=== PATIENT | male | born 1970 | race Caucasian/White ===

== ENCOUNTER 2017-06-02 19:06 | Emergency (ER) | payer BC ==
[2017-06-02] MEDS ORDERED: HYDROCODONE/APAP 10/325 TABLET PO ONE (19:15)
--- NOTE | 2017-06-02 19:19 | Emergency Department Record ---
History of Present Illness - General Stated Complaint: INJURY TO LEFT HAND Source: Patient Mode of Arrival: Ambulatory Limitations: No limitations - History of Present Illness Initial Comments: 46 yo male presents to ED for evaluation following injury to the left hand. Patient reports that he struck a fixed object with the left hand while angry, resulting in instant pain and deformity. Patient denies taking anything prior to arrival for pain, denies other injury, and denies health problems at his baseline. Complaint: Injury to:: Left Onset/Timin -: Minutes(s) Other Extremity Injury: Hand: Left Other Injuries: None Handedness: Left Improves With: None Worsens With: Movement of extremity Context: Direct blow Associated Symptoms: Denies other symptoms - Related Data Previous Rx's Medication Instructions Recorded Hydrocodone/Acetaminophen [[place] 1 each PO Q6H PRN #10 tablet 06/02/17 5-325 Tablet] Allergies Allergy/AdvReac Type Severity Reaction Status Date / Time No Known Drug Allergies Allergy Verified 06/02/17 19:15 Review of Systems Constitutional: Denies: Chills, Fever, Malaise, Night sweats Eyes: Denies: Eye discharge, Eye pain ENT: Denies: Congestion, Ear pain, Epistaxis Respiratory: Denies: Cough, Dyspnea Cardiovascular: Denies: Chest pain, Dyspnea on exertion Endocrine: Denies: Fatigue, Heat or cold intolerance Gastrointestinal: Denies: Abdominal pain, Nausea, Vomiting Genitourinary: Denies: Incontinence, Retention Musculoskeletal: Denies: Arthralgia, Back pain Skin: Denies: Bruising, Change in color Neurological: Denies: Abnormal gait, Confusion, Headache Psychiatric: Denies: Anxiety Hematological/Lymphatic: Denies: Anemia, Blood Clots Physical Exam - General General Appearance: Alert, Oriented x3, Cooperative, Moderate distress Limitations: No limitations - Head Head exam: Atraumatic, Normocephalic, Normal inspection Head exam detail: negative: Abrasion, Contusion, Orozco's sign, General tenderness, Hematoma, Laceration - Eye Eye exam: Normal appearance. negative: Conjunctival injection, Periorbital swelling, Periorbital tenderness, Scleral icterus - ENT Ear exam: negative: Auricular hematoma, Auricular trauma Nasal Exam: negative: Active bleeding, Discharge, Dried blood Mouth exam: negative: Drooling, Laceration, Tongue elevation - Neck Neck exam: Normal inspection. negative: Meningismus, Tenderness - Respiratory Respiratory exam: Normal lung sounds bilaterally. negative: Respiratory distress, Rhonchi, Stridor, Wheezes - Cardiovascular Cardiovascular Exam: Regular rate, Normal rhythm, Normal heart sounds Peripheral Pulses: 3+: Radial (L) - GI/Abdominal GI/Abdominal exam: Soft. negative: Rebound, Rigid, Tenderness - Rectal Rectal exam: Deferred - exam: Deferred - Extremities Extremities exam: Tenderness, Other (STS and deformity present over the dorsum of the left hand c/w probable metacarpal fracture). negative: Calf tenderness, Pedal edema - Back Back exam: Denies: CVA tenderness (R), CVA tenderness (L) - Neurological Neurological exam: Alert, Normal gait, Oriented X3 - Psychiatric Psychiatric exam: Normal affect, Normal mood - Skin Skin exam: negative: Abrasion Type of lesion: negative: abrasion Course - Reevaluation(s) Reevaluation #1: 06/02/17 20:53 Left Hand: Fracture base of the 4th Metacarpal Patient was updated on his radiology result, he does not want work restrictions but is willing to allow splinting. Will place in ulnar gutter splint and refer to Dr. Payne next week. Patient was given referral for orthopedic evaluation and follow-up next week. Disposition Disposition: Discharge Clinical Impression: Hand fracture, left Qualifiers: Encounter type: initial encounter Fracture type: closed Qualified Code(s): S62.92XA - Unspecified fracture of left wrist and hand, initial encounter for closed fracture Disposition: Home, Self-Care Condition: (2) Stable Instructions: Hand Fracture (ED) Additional Instructions: Return to ED if your symptoms worsen or if you have any concerns. Follow-up with Dr. Payne as directed next week for further evaluation of your hand fracture. [place] as directed. Prescriptions: Hydrocodone/Acetaminophen [[place] 5-325 Tablet] 1 each PO Q6H PRN #10 tablet PRN Reason: Pain - Moderate (5-7) Referrals: KOBE PAYNE M.D. [MEDICAL DOCTOR] - Forms: Patient Portal Access Time of Disposition: 20:56 Quality - Quality Measures Quality Measures: N/A - Blood Pressure Screening Does Patient Have Any of the Following: No Blood Pressure Classification: Hypertensive Reading Systolic Measurement: 136 Diastolic Measurement: 96 Screening for High Blood Pressure: < First Hypertensive BP, F/U Documented > [ [id number]] First Hypertensive Follow-up Interventions: Referral to alternative/primary care provider.
--- NOTE | 2017-06-04 19:56 | RADIOLOGY REPORT ---
EXAM: HAND, LEFT 3 VIEWS HISTORY: INJURY. TECHNIQUE: Three views of the left hand were obtained. Preliminary report provided by [facility]. COMPARISON: None. ENCOUNTER: Initial. FINDINGS: There is deformity of the distal aspect of the fifth metacarpal, likely representing an old healed fracture. However, there also appears to be an acute fracture deformity at the base of the fourth metacarpal with some overlying soft tissue swelling along the ulnar aspect of the hand. The fracture is seen to involve the proximal metaphysis of the fourth metacarpal and it is difficult from these films to be certain whether it may extend back into the fourth CMC articulation. It is not definitely identified to do so. No additional fracture elsewhere in the left hand identified. IMPRESSION: 1. APPARENT ACUTE FRACTURE IN THE PROXIMAL METAPHYSEAL REGION OF THE FOURTH METACARPAL, DESCRIBED ABOVE. 2. APPARENT OLD FRACTURE OF THE DISTAL ASPECT OF THE FIFTH METACARPAL. JOB NUMBER: [id number] MTDD
== END 2017-06-02 21:32 | disposition home or self-care (01) ==
LOC: ER 19:06
DX: S62.315A Displaced fracture of base of fourth metacarpal bone, left hand, initial encounter for closed fracture (principal); W22.8XXA Striking against or struck by other objects, initial encounter
CPT/HCPCS: 29125; 99283 ×2; 73130; J3490